=== PATIENT | female | born 1945 | race Hispanic/Latino ===

== ENCOUNTER 2017-03-25 20:15 | Observation (INO) | payer MEDICARE ==
--- NOTE | 2017-03-25 20:52 | C.PDOC ---
History Of Present Illness Patient presents to the ER with a complaint of left leg and hip pain for the past 2 weeks. Patient reports having large ecchymosis to left hip, left lateral aspect of thigh, and medial aspect of thigh in different stages of healing with yellowish/greenish hues. Denies trauma, use of anticoagulants, weakness, or numbness. Time Seen by Provider: 03/25/17 20:52 Chief Complaint (Nursing): Lower Extremity Problem/Injury History Per: Patient History/Exam Limitations: no limitations Onset/Duration Of Symptoms: Days (14) Current Symptoms Are (Timing): Still Present Severity: Mild Pain Scale Rating Of: 3 Recent travel outside of the [place]: No Past Medical History Reviewed: Historical Data, Nursing Documentation, Vital Signs Vital Signs: Last Vital Signs Temp 97.9 F 03/25/17 23:19 Pulse 82 03/25/17 23:19 Resp 18 03/25/17 23:19 BP 151/85 H 03/25/17 23:19 Pulse Ox 98 03/25/17 23:24 - Medical History PMH: No Chronic Diseases Surgical History: No Surg Hx Family History: States: Unknown Family Hx - Social History Hx Alcohol Use: No Hx Substance Use: No - Immunization History Hx Tetanus Toxoid Vaccination: No Hx Influenza Vaccination: Yes Hx Pneumococcal Vaccination: Yes Review Of Systems Skin: Positive for: Other (Ecchymosis) Neurological: Negative for: Weakness, Numbness Physical Exam - Physical Exam Appears: Non-toxic Skin: Warm, Dry Head: Atraumatic, Normacephalic Eye(s): bilateral: Normal Inspection Oral Mucosa: Moist Gingiva: Normal Appearing, No Swelling, No Bleeding Neck: Supple Chest: Symmetrical, No Tenderness Cardiovascular: Rhythm Regular, No Murmur Respiratory: No Rales, No Rhonchi, No Wheezing Gastrointestinal/Abdominal: Soft, No Tenderness Extremity: Normal ROM (x4), Capillary Refill (Good), Other (6x10cm ecchymosis to lower left lateral leg, 8x13cm ecchymosis to medical posterior thigh) Extremity: Left: Other (thigh ecchimosis), Bilateral: Atraumatic, Hips Non- Tender, Normal ROM Pulses: Left Femoral: Normal, Right Femoral: Normal, Left Dorsalis Pedis: Normal , Right Dorsalis Pedis: Normal Neurological/Psych: Oriented x3, Normal Speech, Normal Cognition Gait: Steady ED Course And Treatment - Laboratory Results Result Diagrams: 03/25/17 21:55 03/25/17 21:55 ECG: Interpreted By Me, Viewed By Me ECG Rhythm: Sinus Rhythm (80), Nonspecific Changes O2 Sat by Pulse Oximetry: 98 (Room air) Pulse Ox Interpretation: Normal Progress Note: Blood work, EKG, and urinalysis ordered. Disposition Discussed With Dr.: Fredy Maza Doctor Will See Patient In The: Hospital Counseled Patient/Family Regarding: Studies Performed, Diagnosis, Need For Followup - Disposition Disposition: HOSPITALIZED Disposition Time: 20:52 Condition: FAIR - POA Present On Arrival: None - Clinical Impression Clinical Impression: Joint pain, Ecchymosis, Cellulitis - Scribe Statement The provider has reviewed the documentation as recorded by the Scribluis Hernandez All medical record entries made by the Scribe were at my direction and personally dictated by me. I have reviewed the chart and agree that the record accurately reflects my personal performance of the history, physical exam, medical decision making, and the department course for this patient. I have also personally directed, reviewed, and agree with the discharge instructions and disposition. Decision To Admit - Pt Status Changed To: Hospital Disposition Of: Inpatient - Admit Certification Admit to Inpatient:: After my assessment, the patient will require hospitalization for at least two midnights. This is because of the severity of symptoms shown, intensity of services needed, and/or the medical risk in this patient being treated as an outpatient. - InPatient: Physician Admission Certification: I certify that this patient requires 2 or more midnights of care for the following reason:: After my assessment, the patient will require hospitalization for at least two midnights. This is because of the severity of symptoms shown, intensity of services needed, and/or the medical risk in this patient being treated as an outpatient. - . Bed Request Type: Regular Admitting Physician: Fredy Maza Patient Diagnosis: Joint pain, Ecchymosis, Cellulitis
[2017-03-25 21:59] LABS: BASO # 0.1 K/uL (0.0-0.2); BASO % 1.4 % (0.0-2.0); EOS # 0.2 K/uL (0.0-0.7); EOS % 2.9 % (0.0-4.0); LYMPH # 1.7 K/uL (1.0-4.3); LYMPH % 20.8 % (20.0-40.0); MEAN CELL VOLUME 90.8 fL (81.0-99.0); MEAN PLATELET VOLUME 9.4 fL (7.2-11.7); MONO # 0.8 K/uL (0.0-0.8); MONO % 9.3 % (0.0-10.0); NRBC % 0.1 % (0.0-2.0); WHITE BLOOD COUNT 8.3 K/uL (4.8-10.8)
[2017-03-25 22:07] LABS: CHLORIDE 102 mmol/L (98-107); POTASSIUM 3.8 mmol/L (3.6-5.2); SODIUM 139 mmol/L (132-148)
[2017-03-25 22:08] LABS: RBC URINE 1 /hpf (0-3); TRANSITIONAL EPITHIAL < 1 /hpf (0-3); URINE BACTERIA OCC (<OCC); URINE BILIRUBIN NEGATIVE (NEGATIVE); URINE BLOOD NEGATIVE (NEGATIVE); URINE COLOR Yellow (YELLOW); URINE GLUCOSE (UA) NORMAL (Normal); URINE KETONE NEGATIVE (NEGATIVE); URINE LEUKOCYTE ESTERASE 2+ Leu/uL (Negative); URINE PROTEIN NEGATIVE (NEGATIVE); WBC URINE 17 /hpf (0-5)
[2017-03-25 22:09] LABS: GFR AFRICAN-AMERICAN > 60
[2017-03-25 22:10] LABS: ALB/GLOB RATIO 1.1 (1.0-2.1); ALKALINE PHOSPHATASE 77 U/L (38-126); ALT/SGPT 34 U/L (9-52); AST/SGOT 41 U/L (14-36); BILIRUBIN,TOTAL 1.2 mg/dL (0.2-1.3); BLOOD UREA NITROGEN 22 mg/dL (7-17); CALCIUM 8.5 mg/dl (8.6-10.4); CARBON DIOXIDE 27 mmol/L (22-30); GLUCOSE,RANDOM 96 mg/dL (65-105); TOTAL PROTEIN 6.2 g/dL (6.3-8.3)
[2017-03-25 22:11] LABS: ALCOHOL SERUM < 10 mg/dl (0-10)
[2017-03-25] MEDS ORDERED: Iohexol 350mg/ml 100 ML ONE (22:39)
--- NOTE | 2017-03-25 23:50 | CT ---
EXAM: CT Left Lower Extremity With Intravenous Contrast CLINICAL HISTORY: 71 years old, female; Signs and symptoms; Edema; Yes, it is localized; Prior surgery; Surgery date: 1-6 months; Additional info: Left thigh hematoma - hip to knee TECHNIQUE: Axial computed tomography images of the left lower extremity with intravenous contrast. This CT exam was performed using one or more of the following dose reduction techniques: automated exposure control, adjustment of the mA and/or kV according to patient size, and/or use of iterative reconstruction technique. Coronal and sagittal reformatted images were created and reviewed. CONTRAST: 100 mL of omnipaque 350 administered intravenously. COMPARISON: No relevant prior studies available. FINDINGS: Bones/joints: No acute fracture. LEFT total knee arthroplasty. No dislocation. No definite cortical destruction. Soft tissues: Mild skin thickening of lateral thigh. Mild stranding within subcutaneous tissues of lateral thigh. No soft tissue gas. No discrete peripheral enhancing fluid collection. No mass. Vascular calcifications. Subperitoneal space: [id number] stranding within presacral space about rectum/distal sigmoid colon. IMPRESSION: 1. Probable mild cellulitis. No abscess. No hematoma. 2. Stranding within presacral space, nonspecific. Clinical correlation is needed. 3. Incidental/non-acute findings are described above.
[2017-03-26] MEDS ORDERED: NAPROXEN 375 MG PO PRN (00:30)
[2017-03-26] MEDS ORDERED: Naproxen 275 mg Tab PO PRN (01:07)
[2017-03-26 07:11] LABS: BASO # 0.1 K/uL (0.0-0.2); BASO % 0.9 % (0.0-2.0); EOS # 0.3 K/uL (0.0-0.7); HEMATOCRIT 32.2 % (34.0-47.0); LYMPH # 1.7 K/uL (1.0-4.3); LYMPH % 26.1 % (20.0-40.0); MEAN CELL VOLUME 90.8 fL (81.0-99.0); MEAN CORPUSCULAR HEMOGLOBIN 30.2 pg (27.0-31.0); MEAN CORPUSCULAR HGB CONC 33.3 g/dL (33.0-37.0); MONO # 0.7 K/uL (0.0-0.8); MONO % 10.4 % (0.0-10.0); NRBC % 0.1 % (0.0-2.0); RED CELL DISTRIBUTION WIDTH 15.2 % (11.5-14.5); WHITE BLOOD COUNT 6.7 K/uL (4.8-10.8)
[2017-03-26 07:37] LABS: CHLORIDE 102 mmol/L (98-107); POTASSIUM 3.8 mmol/L (3.6-5.2); SODIUM 138 mmol/L (132-148)
[2017-03-26 07:40] LABS: BLOOD UREA NITROGEN 19 mg/dL (7-17); CARBON DIOXIDE 27 mmol/L (22-30); GFR AFRICAN-AMERICAN > 60; GLUCOSE,RANDOM 98 mg/dL (65-105)
[2017-03-26 07:41] LABS: CALCIUM 8.2 mg/dl (8.6-10.4)
[2017-03-26] MEDS ORDERED: COMBIGAN OD SCH ×2 (10:00→18:00)
[2017-03-26] MEDS ORDERED: BRINZOLAMIDE OU SCH (10:00)
[2017-03-26] MEDS ORDERED: EYE OD SCH ×2 (10:00→18:00)
--- NOTE | 2017-03-26 17:23 | CP.PCM.HP ---
History of Present Illness - History of Present Illness History of Present Illness: cc: ecchymoses of posterior L thigh with pain Pt is a 71 yo Cauc female who was advised by family to go to the hospital after she was found to have ecchymoses all along the posterior L thigh and pt did not know how it happened. Bhargav says that 1.5 weeks ago, she felt some pain at the sciatic nerve exit from the gluteus muscles which lasted for 2 days. Pain resolved spontaneously but about 1 week IRON ASSORTER, pt developed the same pain again which had remained until today. Pt took naproxen a few times which failed to relieve her pain. She decided to remain in bed while with the pain but because she didn't want to develop muscle wasting from underuse, she started performing stretching exercises n bed. 2 days IRON ASSORTER, while exercising, pt noted ecchymoses all over the posterior thigh area reaching all they way down to the back of her L knee. Because of this unertainty, pt polled their opinion and everyone agreed that an ER visit was prudent at the time. Pt was worked up at the ER via maging and bloodwork and was diagnosed with cellulitis. After speaking with sabino, I found this diagnosis untenable, and I changed the admission to Obs until we found a cause. Present on Admission - Present on Admission Any Indicators Present on Admission: No History of DVT/PE: No History of Uncontrolled Diabetes: No Urinary Catheter: No Past Patient History - Infectious Disease Hx of Infectious Diseases: None - Past Medical History & Family History Past Medical History?: Yes - Past Social History Smoking Status: Never Smoked - HEENT Hx Cataracts: Yes (left eye) Hx Glaucoma: Yes (left and right eyes) - HEMATOLOGICAL/ONCOLOGICAL Hx Hepatitis C: Yes - MUSCULOSKELETAL/RHEUMATOLOGICAL Hx Falls: No - PSYCHIATRIC Hx Substance Use: No - SURGICAL HISTORY Hx Orthopedic Surgery: Yes (left total knee replacement) - ANESTHESIA Hx Anesthesia: Yes Hx Anesthesia Reactions: No Hx Malignant Hyperthermia: No Has any member of the family had a problem w/ anesthesia?: No Meds Home Medications: Home Medication List Medication Instructions Recorded Confirmed Type Diclofenac Sodium [Voltaren] 75 mg PO Q12H #30 ect 03/27/17 Rx traMADol [Ultram] 50 mg PO Q6 PRN #20 tab 03/27/17 Rx Allergies/Adverse Reactions: Allergies Allergy/AdvReac Type Severity Reaction Status Date / Time No Known Allergies Allergy Verified 03/25/17 20:28 Physical Exam - Constitutional Appears: No Acute Distress - Head Exam Head Exam: NORMAL INSPECTION, NORMOCEPHALIC - Eye Exam Eye Exam: Normal appearance Pupil Exam: NORMAL ACCOMODATION - ENT Exam ENT Exam: Mucous Membranes Moist, Normal Exam - Neck Exam Neck exam: Positive for: Normal Inspection - Respiratory Exam Respiratory Exam: Clear to Auscultation Bilateral, NORMAL BREATHING PATTERN - Cardiovascular Exam Cardiovascular Exam: REGULAR RHYTHM - GI/Abdominal Exam GI & Abdominal Exam: Normal Bowel Sounds - Rectal Exam Rectal Exam: Deferred - Extremities Exam Extremities exam: Positive for: normal capillary refill, normal inspection, pedal pulses present Additional comments: no calf tenderness, no cords appreciated, + varicose veins not anyore prominent than usua, form inferior gluteus to posterior L knee are ecchymotic lesions in various stages of resolution, darker superiorly, more yellowish and ligher at knee areal - Back Exam Back exam: NORMAL INSPECTION - Neurological Exam Neurological exam: Abnormal Gait, Oriented x3, Reflexes Normal Additional comments: able to put on weight on L leg but with difficulty; initially unable to put weight on it for a longer period of time - Psychiatric Exam Psychiatric exam: Normal Affect, Normal Mood - Skin Skin Exam: Normal Color, Pallor Additional comments: + pallor at her hands and forearms, cap refill normal though, and ecchyoses as noted Results - Vital Signs Recent Vital Signs: Last Vital Signs Temp 98.1 F 03/26/17 15:49 Pulse 72 03/26/17 15:49 Resp 20 03/26/17 15:49 BP 127/78 03/26/17 15:49 Pulse Ox 99 03/26/17 15:49 - Labs Result Diagrams: 03/26/17 07:06 03/26/17 07:06 Labs: Laboratory Results - last 24 hr 03/26/17 03/26/17 03/26/17 01:01 07:06 07:06 WBC 6.7 RBC 3.54 L Hgb 10.7 L Hct 32.2 L MCV 90.8 MCH 30.2 MCHC 33.3 RDW 15.2 H Plt Count 264 MPV 9.0 Neut % (Auto) 58.6 Lymph % (Auto) 26.1 [place] % (Auto) 10.4 H Eos % (Auto) 4.0 Baso % (Auto) 0.9 Neut # 3.9 Lymph # 1.7 [place] # 0.7 Eos # 0.3 Baso # 0.1 ESR 57 H Sodium 138 Potassium 3.8 Chloride 102 Carbon Dioxide 27 Anion Gap 13 BUN 19 H Creatinine 0.7 Est GFR ( Amer) > 60 Est GFR (Non-Af Amer) > 60 Random Glucose 98 Calcium 8.2 L Alpha Fetoprotein Carcinoembryonic Ag 03/26/17 03/26/17 08:53 08:53 WBC RBC Hgb Hct MCV MCH MCHC RDW Plt Count MPV Neut % (Auto) Lymph % (Auto) [place] % (Auto) Eos % (Auto) Baso % (Auto) Neut # Lymph # [place] # Eos # Baso # ESR Sodium Potassium Chloride Carbon Dioxide Anion Gap BUN Creatinine Est GFR ( Amer) Est GFR (Non-Af Amer) Random Glucose Calcium Alpha Fetoprotein 4.9 Carcinoembryonic Ag 0.7 Assessment & Plan (1) Hip dislocation, left Assessment and Plan: s/p spontaneous reduction with resulting symptoms as below Status: Acute (2) Joint pain Assessment and Plan: most prob from dislocation of join with spontaenous reduction. will confirm with MRI Status: Acute (3) Ecchymosis Assessment and Plan: apply heat to area to speed up healing Status: Acute Decision To Admit - Admit Certification Admit to Inpatient:: Admit to Observation for work up of unknown bleeding source and it's cause., which may or may not be life threatening at this point, but can only be done speedily in an acute care setting. - InPatient: Physician Admission Certification:: I certify that this patient needs inpatient admission for her condition which, if left to itself, can pose a grave threat to patient's life. Therefore observation inpatient admission is warranted. - . Bed Request Type: Regular
[2017-03-26] MEDS ORDERED: Gadodiamide 287 mg/ml 20 ml IV ONE (18:11)
[2017-03-26] MEDS: COMBIGAN OU SCH (21:30)
[2017-03-26] MEDS: BRINZOLAMIDE 1% OS SCH (21:31)
[2017-03-26] MEDS ORDERED: Latanoprost 2.5 ml Opht Soln OD SCH (22:00)
--- NOTE | 2017-03-27 09:05 | CARD ---
APPROVED REPORT EKG Measurement Heart [id number] <Conclusion> Normal sinus rhythm Moderate voltage criteria for LVH, may be normal variant Borderline ECG
[2017-03-27] MEDS: COMBIGAN OU SCH ×2 (10:39→18:28)
[2017-03-27] MEDS: BRINZOLAMIDE 1% OS SCH ×2 (10:40→18:28)
--- NOTE | 2017-03-27 12:11 | MRI ---
MRI left thigh History: Bruising and spontaneous bleeding to the left thigh. Pain. Comparison: CT scan dated 03/25/2017 Technique: Multi-echo multiplanar sequences were performed through the left femur without and with the use of intravenous contrast. Findings: Heterogeneity of the visualized marrow with patchy decreased T1 signal suggestive for hematopoietic marrow reconversion. Rounded foci of signal abnormality seen within the distal medullary cavity of the left femur measuring 1.8 centimeters which may represent a small focal lesion versus focal hematopoietic marrow reconversion conversion. Clinical correlation. Prominent signal abnormality with fluid, edema, and possible hemorrhage seen extending along the lateral aspect of the vastus lateralis muscles from the level of the hip joint to the knee. Prominent reactive edema and possible hemorrhage centered at the levels of the piriformis and quadratus femoris muscles concerning for possible partial tearing of the muscles. Mild increased signal is noted surrounding the sciatic nerve and in the substance of the hamstring tendons. This extends from the level of the inferior pubic ramus inferiorly to the level of the upper thigh. Edema is noted within the subcutaneous fat immediately lateral to and contiguous with the vastus lateralis muscle. Subcutaneous edema as well as T2 hyperintensity in the fat-suppressed T2 weighted sequences also noted adjacent to the gracilis muscle medially. Impression: 1. Prominent signal abnormality with fluid, edema, and possible hemorrhage seen extending along the lateral aspect of the vastus lateralis muscles from the level of the hip joint to the knee. Prominent reactive edema and possible hemorrhage centered at the levels of the piriformis and quadratus femoris muscles concerning for possible partial tearing of the muscles. 2. Mild increased signal is noted surrounding the sciatic nerve and in the substance of the hamstring tendons. This extends from the level of the inferior pubic ramus inferiorly to the level of the upper thigh. 3. Subcutaneous edema as well as T2 hyperintensity in the fat-suppressed T2 weighted sequences also noted adjacent to the gracilis muscle medially. Clinical correlation. Partial tearing at this level cannot be excluded. 4. Rounded foci of signal abnormality seen within the distal medullary cavity of the left femur measuring 1.8 centimeters which may represent a small focal lesion versus focal hematopoietic marrow reconversion conversion. Clinical correlation. These findings were preliminarily reported at 6:56 p.m. on 03/26/[address] Criss Johnson from [facility].
[2017-03-27 16:01] VITALS: BP 129/77; PULSE 67; RESP 20; TEMP 97.4; O2SAT 99
--- NOTE | 2017-03-27 17:36 | CP.PCM.PN ---
Subjective - Date & Time of Evaluation Date of Evaluation: 03/27/17 Time of Evaluation: 17:36 - Subjective Subjective: Alert, oriented, ambulated with PT, no acute distress. Objective - Vital Signs/Intake and Output Vital Signs (last 24 hours): Temp Pulse Resp BP Pulse Ox 97.4 F L 67 20 129/77 99 03/27/17 15:57 03/27/17 15:57 03/27/17 15:57 03/27/17 15:57 03/27/17 15:57 - Medications Medications: Current Medications Bisacodyl (Dulcolax) 10 mg AK BID PRN PRN Reason: Constipation Home Med (Patient's Own Drops) 1 drop OU BID [facility] Last Admin: 03/27/17 10:39 Dose: 1 drop Home Med (Patient's Own Drops) 1 drop OS BID [facility] Last Admin: 03/27/17 10:40 Dose: 1 drop Latanoprost (Xalatan Opht) 0 ml OD HS [facility] Last Admin: 03/26/17 21:48 Dose: 1 ml Naproxen (Anaprox) 275 mg PO Q6 PRN PRN Reason: Pain, Mild (1-3) Tramadol HCl (Ultram) 50 mg PO Q6 PRN PRN Reason: Pain, moderate (4-7) Last Admin: 03/27/17 10:41 Dose: 50 mg - Labs Labs: 03/26/17 07:06 03/26/17 07:06 PT 11.2 SECONDS (9.7-12.2) 03/25/17 21:55 INR 1.0 03/25/17 21:55 APTT 27 SECONDS (21-34) 03/25/17 21:55 Assessment and Plan - Assessment and Plan (Free Text) Assessment: Patient is seen and examined, admitted with pain and echimoses on the left hip and thigh. Feeling better, seen by physical therapyst, cleared by DR Maza, discharge plan for home with home care and home PT. Voltaren and tramadol given for pain as needed. Advised to follow up in the office in 1 week and as needed.
--- NOTE | 2017-03-28 00:06 | CP.PCM.DIS ---
Provider - Provider Date of Admission: 03/26/17 00:16 Attending physician: Fredy Maza MD Consults: Dr. Fredy Maza Time Spent in preparation of Discharge (in minutes): 30 Diagnosis - Discharge Diagnosis (1) Hip dislocation, left Status: Acute Comment: consult Ortho outpatient; PT eval--> home PT (2) Ecchymosis Status: Acute Comment: apply heat to area to speed up dissipation of ecchymoses (3) Joint pain Status: Acute Comment: start NSAID for inflammation Hospital Course - Lab Results Lab Results: Most Recent Lab Values WBC 6.7 K/uL (4.8-10.8) 03/26/17 07:06 RBC 3.54 Mil/uL (3.80-5.20) L 03/26/17 07:06 Hgb 10.7 g/dL (11.0-16.0) L 03/26/17 07:06 Hct 32.2 % (34.0-47.0) L 03/26/17 07:06 MCV 90.8 fL (81.0-99.0) 03/26/17 07:06 MCH 30.2 pg (27.0-31.0) 03/26/17 07:06 MCHC 33.3 g/dL (33.0-37.0) 03/26/17 07:06 RDW 15.2 % (11.5-14.5) H 03/26/17 07:06 Plt Count 264 K/uL (130-400) 03/26/17 07:06 MPV 9.0 fL (7.2-11.7) 03/26/17 07:06 Neut % (Auto) 58.6 % (50.0-75.0) 03/26/17 07:06 Lymph % (Auto) 26.1 % (20.0-40.0) 03/26/17 07:06 [place] % (Auto) 10.4 % (0.0-10.0) H 03/26/17 07:06 Eos % (Auto) 4.0 % (0.0-4.0) 03/26/17 07:06 Baso % (Auto) 0.9 % (0.0-2.0) 03/26/17 07:06 Neut # 3.9 K/uL (1.8-7.0) 03/26/17 07:06 Lymph # 1.7 K/uL (1.0-4.3) 03/26/17 07:06 [place] # 0.7 K/uL (0.0-0.8) 03/26/17 07:06 Eos # 0.3 K/uL (0.0-0.7) 03/26/17 07:06 Baso # 0.1 K/uL (0.0-0.2) 03/26/17 07:06 ESR 57 mm/hr (0-20) H 03/26/17 01:01 PT 11.2 SECONDS (9.7-12.2) 03/25/17 21:55 INR 1.0 03/25/17 21:55 APTT 27 SECONDS (21-34) 03/25/17 21:55 Sodium 138 mmol/L (132-148) 03/26/17 07:06 Potassium 3.8 mmol/L (3.6-5.2) 03/26/17 07:06 Chloride 102 mmol/L (98-107) 03/26/17 07:06 Carbon Dioxide 27 mmol/L (22-30) 03/26/17 07:06 Anion Gap 13 (10-20) 03/26/17 07:06 BUN 19 mg/dL (7-17) H 03/26/17 07:06 Creatinine 0.7 MG/DL (0.7-1.2) 03/26/17 07:06 Est GFR ( Amer) > 60 03/26/17 07:06 Est GFR (Non-Af Amer) > 60 03/26/17 07:06 Random Glucose 98 mg/dL (65-105) 03/26/17 07:06 Calcium 8.2 mg/dl (8.6-10.4) L 03/26/17 07:06 Total Bilirubin 1.2 mg/dL (0.2-1.3) 03/25/17 21:55 AST 41 U/L (14-36) H 03/25/17 21:55 ALT 34 U/L (9-52) 03/25/17 21:55 Alkaline Phosphatase 77 U/L (38-126) 03/25/17 21:55 Total Protein 6.2 g/dL (6.3-8.3) L 03/25/17 21:55 Albumin 3.2 g/dL (3.5-5.0) L 03/25/17 21:55 Globulin 3.0 gm/dL (2.2-3.9) 03/25/17 21:55 Albumin/Globulin Ratio 1.1 (1.0-2.1) 03/25/17 21:55 Alpha Fetoprotein 4.9 ng/mL (0.0-7.5) 03/26/17 08:53 Carcinoembryonic Ag 0.7 ng/mL (0-3.0) 03/26/17 08:53 Urine Color Yellow (YELLOW) 03/25/17 21:55 Urine Clarity Clear (Clear) 03/25/17 21:55 Urine pH 6.0 (5.0-8.0) 03/25/17 21:55 Ur Specific [place] 1.019 (1.003-1.030) 03/25/17 21:55 Urine Protein Negative mg/dL (NEGATIVE) 03/25/17 21:55 Urine Glucose (UA) Normal mg/dL (Normal) 03/25/17 21:55 Urine Ketones Negative mg/dL (NEGATIVE) 03/25/17 21:55 Urine Blood Negative (NEGATIVE) 03/25/17 21:55 Urine Nitrate Negative (NEGATIVE) 03/25/17 21:55 Urine Bilirubin Negative (NEGATIVE) 03/25/17 21:55 Urine Urobilinogen 2.0 mg/dL (0.2-1.0) H 03/25/17 21:55 Ur Leukocyte Esterase 2+ [place]/uL (Negative) H 03/25/17 21:55 Urine WBC (Auto) 17 /hpf (0-5) H 03/25/17 21:55 Urine RBC (Auto) 1 /hpf (0-3) 03/25/17 21:55 Ur Squamous Epith Cells 4 /hpf (0-5) 03/25/17 21:55 Ur Transition Epith Cell < 1 /hpf (0-3) 03/25/17 21:55 Urine Bacteria Occ (<OCC) H 03/25/17 21:55 Urine Opiates Screen Negative (NEGATIVE) 03/25/17 22:18 Urine Methadone Screen Negative (NEGATIVE) 03/25/17 22:18 Ur Barbiturates Screen Negative (NEGATIVE) 03/25/17 22:18 Ur Phencyclidine Scrn Negative (NEGATIVE) 03/25/17 22:18 Ur Amphetamines Screen Negative (NEGATIVE) 03/25/17 22:18 U Benzodiazepines Scrn Negative (NEGATIVE) 03/25/17 22:18 U Oth Cocaine Metabols Negative (NEGATIVE) 03/25/17 22:18 U Cannabinoids Screen Negative (NEGATIVE) 03/25/17 22:18 Alcohol, Quantitative < 10 mg/dl (0-10) 03/25/17 21:55 Blood Type AB POSITIVE 03/25/17 21:55 Antibody Screen Negative 03/25/17 21:55 - Hospital Course Hospital Course: Pt admitted for observation and to determine cause of intramuscular bleeding noted by patient 1 day TWIST TESTER. Pt did not exhibit any new symptoms clinically, and MRI of pt's hip and hip structures showed evidence of what had been suspected by author: spontaenous dislocation and closed reduction at hip joint resulting in tearing of adjacent muscles and bleeding from torn blood vessels. Pt's hgb did not drop significantly though, and pt able to ambulate though with some difficulty compared to before when she was not injured. Started pt on appropriate medication for pain and inflammation and will start pt on outpatient PT in a week's time. - Date & Time of H&P Date of H&P: 03/26/17 Discharge Exam - Eye Exam Eye Exam: Normal appearance Pupil Exam: NORMAL ACCOMODATION - ENT Exam ENT Exam: Normal Exam - Neck Exam Neck exam: Normal Inspection - Respiratory Exam Respiratory Exam: NORMAL BREATHING PATTERN - Cardiovascular Exam Cardiovascular Exam: REGULAR RHYTHM - GI/Abdominal Exam GI & Abdominal Exam: Normal Bowel Sounds - Rectal Exam Rectal Exam: NORMAL INSPECTION - Exam Exam: NORMAL INSPECTION - Extremities Exam Extremities exam: normal inspection Additional comments: + ecchymoses on L posterior thigh down to posterior knee - Back Exam Back exam: NORMAL INSPECTION Discharge Plan - Discharge Medications Prescriptions: RX: traMADol [Ultram] 50 mg PO Q6 PRN #20 tab PRN Reason: Pain, Moderate (4-7) RX: Diclofenac Sodium [Voltaren] 75 mg PO Q12H #30 ect - Follow Up Plan Condition: FAIR Disposition: HOME/ ROUTINE Instructions: Diclofenac (By mouth), Tramadol (By mouth), Cellulitis (DC) Additional Instructions: Continue eye drops as directed. Take new prescriptions voltaren and ultram as directed. Discontinue naprosyn. Follow up with Dr. Maza in one week. If symptoms worsen, return to the emergency department. Referrals: Fredy Maza MD [Staff Provider] -
--- NOTE | 2017-03-29 16:26 | CP.PCM.PN ---
Subjective - Date & Time of Evaluation Date of Evaluation: 03/27/17 Time of Evaluation: 16:20 - Subjective Subjective: Pt seen and examined, lying in bed mostly since movement and being on her feet produces pain on the affected limb. No worseining of pain, and no worsening of ecchymosis. Pt had remained afebrile throughout the course of admission, and no worsening of ecchymoses. Had ordered MRI of the hip and lower extremity which was not done yet. Objective - Vital Signs/Intake and Output Vital Signs (last 24 hours): Temp Pulse Resp BP Pulse Ox 97.4 F L 67 20 129/77 99 03/27/17 15:57 03/27/17 15:57 03/27/17 15:57 03/27/17 15:57 03/27/17 15:57 - Labs Labs: 03/26/17 07:06 03/26/17 07:06 PT 11.2 SECONDS (9.7-12.2) 03/25/17 21:55 INR 1.0 03/25/17 21:55 APTT 27 SECONDS (21-34) 03/25/17 21:55 - Constitutional Appears: No Acute Distress (though pain present with wgt bearing and transfers, pain is tolerable to pt) - Head Exam Head Exam: NORMAL INSPECTION, NORMOCEPHALIC - Eye Exam Eye Exam: Normal appearance Pupil Exam: NORMAL ACCOMODATION - ENT Exam ENT Exam: Mucous Membranes Moist, Normal Exam - Neck Exam Neck Exam: Normal Inspection - Respiratory Exam Respiratory Exam: Clear to Ausculation Bilateral, Respiratory Distress, NORMAL BREATHING PATTERN - Cardiovascular Exam Cardiovascular Exam: REGULAR RHYTHM - GI/Abdominal Exam GI & Abdominal Exam: Soft, Normal Bowel Sounds - Rectal Exam Rectal Exam: Deferred - Extremities Exam Extremities Exam: Full ROM, Normal Capillary Refill - Back Exam Back Exam: NORMAL INSPECTION - Neurological Exam Neurological Exam: Abnormal Gait Neuro motor strength exam: Left Upper Extremity: 5, Right Upper Extremity: 5, Left Lower Extremity: 3, Right Lower Extremity: 4 Additional comments: + pain with ambulation on L hip - Psychiatric Exam Psychiatric exam: Normal Affect, Normal Mood - Skin Skin Exam: Dry, Normal Color, Warm Additional comments: + ecchymosis on posterior L leg Assessment and Plan (1) Hip dislocation, left Status: Acute (2) Joint pain Status: Acute (3) Ecchymosis Status: Acute
== END 2017-03-27 19:46 | disposition home or self-care (01) ==
LOC: C.ER 20:15 → C.9E 03-26 00:16 → C.6T 03-26 01:22 → C.5T 03-27 03:30
PROVIDERS: ADMIT Family Medicine; ATTEND Family Medicine
DX: L03.116 Cellulitis of left lower limb (principal); S73.005A Unspecified dislocation of left hip, initial encounter; Z96.652 Presence of left artificial knee joint; H40.9 Unspecified glaucoma; H26.9 Unspecified cataract; B19.20 Unspecified viral hepatitis C without hepatic coma; R58 Hemorrhage, not elsewhere classified
CPT/HCPCS: 73701; 73723; 80048; 80053; 81001; 82105; 82378; 85025; 85610; 85651; 85730; 86850; 86900; 87040; 93005; 97116; 97162; 97530; 99285; A9579; G0378; G0480; G8978; G8979; Q9967